=== PATIENT | female | born 1970 | race Two or more races ===

== ENCOUNTER 2022-08-14 07:37 | Outpatient (CLI) | payer OTHER | END 2022-08-14 07:44 | disposition home or self-care (01) | LOC: RX STUDY 07:37 | DX: Z98.84 Bariatric surgery status (principal); E66.01 Morbid (severe) obesity due to excess calories ==

== ENCOUNTER 2024-06-17 13:24 | Outpatient (CLI) | payer OTHER | END 2024-06-17 13:25 | disposition home or self-care (01) | LOC: NUCLEAR 13:24 | DX: I82.609 Acute embolism and thrombosis of unspecified veins of unspecified upper extremity (principal); M79.603 Pain in arm, unspecified; I87.2 Venous insufficiency (chronic) (peripheral); R60.0 Localized edema; I82.403 Acute embolism and thrombosis of unspecified deep veins of lower extremity, bilateral ==

== ENCOUNTER 2024-06-18 10:51 | Outpatient (CLI) | payer OTHER | END 2024-06-18 10:52 | disposition home or self-care (01) | LOC: NUCLEAR 10:51 | DX: I82.609 Acute embolism and thrombosis of unspecified veins of unspecified upper extremity (principal); R60.0 Localized edema; M79.603 Pain in arm, unspecified; I87.2 Venous insufficiency (chronic) (peripheral); I82.409 Acute embolism and thrombosis of unspecified deep veins of unspecified lower extremity ==